=== PATIENT | female | born 1980 | race Caucasian/White ===

== ENCOUNTER 2017-12-20 12:15 | Emergency (ER) | payer SELFPAY ==
[2017-12-20 12:18] VITALS: BMI 29.2
--- NOTE | 2017-12-20 12:25 | PDOC ---
History of Present Illness <Edita Guevara - Last Filed: 12/20/17 13:34> - General History Source: Patient Exam Limitations: No Limitations - History of Present Illness Initial Comments: 12/20/17 12:26 A 37 yo F with no signif PMHx presenting with lower abdominal pain since this am. Pain came on suddenly, 10/ not relieved by pain meds. Associated with one episode of nausea and vomiting. Pt had one episode of diarrhea this am, brown, non bloody. No dysuria, no vaginal discharge, no hematuria. Pt noted onset of her menstrual period this am, usually 01/05, regular, no dysmenorrhea. She is P4 (4Alive) last child 10years ago. Pt has loss of appetite and generalized weakness. No chest pain, no shortness of breath. 12/20/17 13:06 Timing/Duration: 4-6 hours, getting worse Severity: moderate Associated Symptoms: reports: loss of appetite, nausea/vomiting. denies: chest pain, cough, diaphoresis, fever/chills, headaches <Agaba,Comfort I - Last Filed: 12/20/17 16:44> - General Chief Complaint: Pain Stated Complaint: ABDOMINAL PAIN Time Seen by Provider: 12/20/17 12:23 Past History <Edita Guevara - Last Filed: 12/20/17 13:34> - Past Medical History COPD: No - Suicide/Smoking/Psychosocial Hx Smoking History: Never smoked Hx Alcohol Use: No Drug/Substance Use Hx: No Substance Use Type: None <Agaba,Comfort I - Last Filed: 12/20/17 16:44> - Past Medical History Allergies/Adverse Reactions: Allergies Allergy/AdvReac Type Severity Reaction Status Date / Time Penicillins Allergy Verified 12/20/17 12:18 Review of Systems - Review of Systems Able to Perform ROS?: Yes (Sister interpreting) Is the patient limited Yoruba proficient: Yes Constitutional: Yes: Loss of Appetite, Weakness. No: Chills, Diaphoresis, Fever , Night Sweats HEENTM: Yes: Throat Pain. No: Nose Congestion Respiratory: No: Cough, Orthopnea, Shortness of Breath Cardiac (ROS): No: Chest Pain, Edema, Palpitations, Syncope, Chest Tightness ABD/GI: Yes: Abd. Pain w/ defecation, Diarrhea, Vomiting. No: Abdominal Distended, Constipated, Other : Yes: Pain. No: Burning, Dysuria, Discharge, Hematuria Musculoskeletal: Yes: Muscle Weakness. No: Back Pain, Joint Stiffness Neurological: Yes: Weakness. No: Headache, Numbness, Paresthesia Endocrine: No: Excessive Sweating, Flushing, Increased Hunger Hematologic/Lymphatic: No: Anemia <Agaba,Comfort I - Last Filed: 12/20/17 16:44> *Physical Exam - Vital Signs Last Vital Signs Temp Pulse Resp BP Pulse Ox 97.8 F 76 18 114/54 100 12/20/17 12:16 12/20/17 12:16 12/20/17 12:16 12/20/17 12:16 12/20/17 12:16 <IsmaelEdita - Last Filed: 12/20/17 13:34> - Vital Signs Last Vital Signs Temp Pulse Resp BP Pulse Ox 97.8 F 76 18 114/54 100 12/20/17 12:16 12/20/17 12:16 12/20/17 12:16 12/20/17 12:16 12/20/17 12:16 - Physical Exam General Appearance: Yes: Apparent Distress HEENT: positive: EOMI, ALVARO. negative: Scleral Icterus (L) Neck: positive: Supple. negative: Tender Respiratory/Chest: positive: Lungs Clear, Normal Breath Sounds Cardiovascular: positive: Regular Rate, S1, S2 Gastrointestinal/Abdominal: positive: Normal Bowel Sounds, Soft, Tenderness ( Tenderness McBurneys point, absent Rovsing, positive psoas and obturator signs, absent CVA tenderness). negative: Distended, Mass Musculoskeletal: negative: CVA Tenderness Extremity: positive: Normal Inspection. negative: Cyanosis, Calf Tenderness Integumentary: positive: Dry, Warm Neurologic: positive: Fully Oriented, Alert, Motor Strength 5/5. negative: Facial Droop, Numbness, Confused, Disoriented <Agaba,Comfort I - Last Filed: 12/20/17 16:44> Heart Score/ECG Review - ECG Intrepretation Rhythm: Regular Rhythm - Broadway Broadway: Normal - P and AK Delta Wave(s) Present: No WPW: No - ST and T Prolonged Q-T Interval: Yes - ECG Impressions Comment:: 12/20/17 14:35 Normal sinus rhythm, Ventricular rate 73bpm Prolonged QT/QTc-454/500 No previous EKGs <Agaseveriano,Comfort I - Last Filed: 12/20/17 16:44> ED Treatment Course - LABORATORY CBC & Chemistry Diagram: 12/20/17 12:47 12/20/17 12:47 - ADDITIONAL ORDERS Additional order review: Laboratory Results 12/20/17 12/20/17 12/20/17 12:47 12:47 12:30 PT with INR 11.90 Cancelled INR 1.05 Cancelled PTT (Actin FS) 28.6 Urine Color Urine Appearance Urine pH Ur Specific [place] Urine Protein Urine Glucose (UA) Urine Ketones Urine Blood Urine Nitrite Urine Bilirubin Urine Urobilinogen Ur Leukocyte Esterase Urine WBC (Auto) Urine RBC (Auto) Ur Epithelial Cells Urine Mucus Urine HCG, Qual Negative 12/20/17 12:30 PT with INR INR PTT (Actin FS) Urine Color Yellow Urine Appearance Slcloudy Urine pH 7.0 Ur Specific [place] 1.026 Urine Protein 2+ H Urine Glucose (UA) Negative Urine Ketones Trace H Urine Blood 1+ H Urine Nitrite Negative Urine Bilirubin Negative Urine Urobilinogen Negative Ur Leukocyte Esterase Negative Urine WBC (Auto) 1 Urine RBC (Auto) 77 Ur Epithelial Cells Rare Urine Mucus Few Urine HCG, Qual 12/20/17 12:47 RBC 4.42 MCV 72.7 L MCHC 32.9 RDW 16.9 H MPV 8.2 Neutrophils % 79.8 Lymphocytes % 12.5 Monocytes % 5.6 Eosinophils % 1.3 Basophils % 0.8 - Medications Given in the ED: ED Medications Discontinued Medications Generic Name Dose Route Start Last Admin Trade Name Arsenio PRN Reason Stop Dose Admin Morphine Sulfate 4 mg 12/20/17 12:45 12/20/17 12:56 Morphine Injection - IVPUSH 12/20/17 12:46 4 mg ONCE ONE Administration Ondansetron HCl 4 mg 12/20/17 12:50 12/20/17 13:01 Zofran Injection IVPUSH 12/20/17 12:51 4 mg ONCE ONE Administration Sodium Chloride 1,000 ml 12/20/17 12:44 12/20/17 12:56 Normal Saline - IV 12/20/17 12:45 1,000 ml ONCE ONE Administration <Edita Guevara - Last Filed: 12/20/17 13:34> - LABORATORY CBC & Chemistry Diagram: 12/20/17 12:47 12/20/17 12:47 <Radha Reyes I - Last Filed: 12/20/17 16:44> Medical Decision Making - Medical Decision Making UA, test- R/O kidney stones and ectopic test negative, UA negative except for blood (pt is on her menstrual period) 12/20/17 15:35 RLQ tenderness with positive McBurney's tenderness, psoas and obturator, negative Rovsings Likely acute appendicitis, R/O ovarian cyst rupture CBC, CMP, PT/PTT, EKG, CXR, CT scan with PO and iv contrast No leucocytosis, normal CMP pending- CT reading 12/20/17 16:30 CT abdomen pelvis- No evidence of appendicitis or acute pathology D/W patient, to follow up with inside sales advertising executive, likely secondary dysmenorrhea since no previous hx and abdominal pain coincided with onset of menses <Radha Reyes I - Last Filed: 12/20/17 16:44> *DC/Admit/Observation/Transfer <Edita Guevara - Last Filed: 12/20/17 13:34> - Discharge Dispostion Admit: No - Attestations Physician Attestion: 12/20/17 16:38 Radha Reyes MD <Radha Reyes I - Last Filed: 12/20/17 16:44> Diagnosis at time of Disposition: Dysmenorrhea, unspecified - Discharge Dispostion Disposition: HOME Condition at time of disposition: Improved - Referrals Referrals: Randi Chamberlain MD [Staff Physician] - 3 days - Patient Instructions Printed Discharge Instructions: DI for Dysmenorrhea Additional Instructions: You came in with a hx of lower abdominal pain, nausea/vomiting and diarrhea We did blood and urine tests that did not show any evidence of infection We did a CT of your abdomen that did not show any evidence of acute appendicitis or kidney stones We suspect this is painful menses Please follow up with a Fabrication Lead in 2-3 days Follow up with your primary doctor at [address] [place] [id number] within a week If you think your symptoms are worsening, please return to the emergency room Print Language: TAMAZIGHT
[2017-12-20 12:41] LABS: URINE APPEARANCE SLCLOUDY; URINE BILIRUBIN NEGATIVE (<2.0 mg/dL); URINE COLOR YELLOW; URINE GLUCOSE (UA) NEGATIVE (NEGATIVE); URINE KETONE TRACE (NEGATIVE); URINE LEUK ESTERASE NEGATIVE (NEGATIVE); URINE NITRITE NEGATIVE (NEGATIVE); URINE PROTEIN 2+ (NEGATIVE); URINE UROBILINOGEN NEGATIVE mg/dL (0.2-1.0)
[2017-12-20 12:43] LABS: EPI CELLS RARE /HPF (FEW); URINE MUCUS FEW
[2017-12-20] MEDS ORDERED: SODIUM CHLORIDE 0.9% 500 ML INFUS.BAG IV ONE (12:44)
[2017-12-20] MEDS ORDERED: morphine CARPU-JECT 4 MG/1 ML DISP.SYRIN IVPUSH ONE (12:45)
[2017-12-20] MEDS ORDERED: morphine SULFATE 4 MG/ML VIAL ONE (12:50)
[2017-12-20] MEDS ORDERED: ONDANSETRON 4 MG/2 ML VIAL IVPUSH ONE (12:50)
--- NOTE | 2017-12-20 12:50 | PDOC ---
Attending Attestation - HPI HPI: 12/20/17 13:34 The patient is a 37-year-old female, with no significant past medical history, who presents to the ED with lower abdominal pain that began after she woke up this morning. The patient states that the pain came on suddenly, 10/10 severity , associated with nausea and vomiting. Patient took pain medication with no alleviation of her symptoms. She reports having one episode of nonbloody diarrhea this morning, loss of appetite, and generalized weakness. Patient began her menstrual period today. The patient denies any chest pain or shortness of breath. Denies any dysuria, hematuria, frequency, urgency, or hesitancy. - Physicial Exam PE: 12/20/17 13:34 GENERAL: (+)In acute distress. Awake, alert, and fully oriented. HEAD: No signs of trauma EYES: PERRLA, EOMI, sclera anicteric, conjunctiva clear ENT: Auricles normal inspection, hearing grossly normal, nares patent, oropharynx clear without exudates. Moist mucosa NECK: Normal ROM, supple, no lymphadenopathy, JVD, or masses LUNGS: Breath sounds equal, clear to auscultation bilaterally. No wheezes, and no crackles HEART: Regular rate and rhythm, normal S1 and S2, no murmurs, rubs or gallops ABDOMEN: (+)McBurney's sign. Soft, normoactive bowel sounds. No masses EXTREMITIES: (+)positive obturator and psoas. No edema. No clubbing or cyanosis. No cords, erythema, or tenderness NEUROLOGICAL: Cranial nerves II through XII grossly intact. Normal speech, normal gait SKIN: Warm, Dry, normal turgor, no rashes or lesions noted <Edita Guevara - Last Filed: 12/20/17 14:13> - Resident Resident Name: [facility] - ED Attending Attestation I have performed the following: I have examined & evaluated the patient, The case was reviewed & discussed with the resident, I agree w/resident's findings & plan, Exceptions are as noted - Medical Decision Making 12/20/17 12:47 I, Dr. Emelyn Cifuentes, DO, attest that this document has been prepared under my direction and personally reviewed by me in its entirety. I further attest, that it accurately reflects all work, treatment, procedures and medical decision -making performed by me. 12/20/17 12:49 a/p: 37yo female with acute onset of n/v/d and RLQ pain -anorexia now -pain to mcburneys point -currently menstruating and no hx of ovarian cysts -will obtain labs, ua, ct abd/pelvis to eval for poss acute appendicitis -will give ivf hdyration, nausea and pain control 12/20/17 14:13 pt is currently menstruating 12/20/17 16:50 no elevated wbc no acute appy or acute intraabd path seen on ct stable for d/c to home resident discussed labs and imaging with the patient. pt feeling better. <Emelyn Cifuentes - Last Filed: 12/20/17 16:51> Heart Score/ECG Review - ECG Intrepretation Comment:: 12/20/17 14:12 sinus at 73, nl axis, nl interval no acute st/t wave findings <Emelyn Cifuentes - Last Filed: 12/20/17 16:51> Attestations - Attestations 12/20/17 13:36 Documentation prepared by Edita Guevara, acting as certified medical biller for Emelyn Cifuentes DO. <Edita Guevara - Last Filed: 12/20/17 14:13>
[2017-12-20 12:54] LABS: BASO % 0.8 % (0-2.0); EOS % 1.3 % (0-4.5); HEMATOCRIT 32.1 % (32.4-45.2); HEMOGLOBIN 10.6 GM/dL (10.7-15.3); LYMPH % 12.5 % (8-40); MCH 23.9 pg (25.7-33.7); MCHC 32.9 g/dl (32.0-36.0); MEAN CELL VOLUME 72.7 fl (80-96); MEAN PLT VOLUME 8.2 fl (7.5-11.1); MONO % 5.6 % (3.8-10.2); NEUT % 79.8 % (42.8-82.8); PLATELET COUNT 276 K/MM3 (134-434); RBC 4.42 M/mm3 (3.60-5.2); RDW 16.9 % (11.6-15.6); WHITE BLOOD COUNT 8.4 K/mm3 (4.0-10.0)
[2017-12-20] MEDS ORDERED: ONDANSETRON 4 MG/2 ML VIAL ONE (12:57)
[2017-12-20 13:08] LABS: INR 1.05 (0.82-1.09); PROTHROMBIN TIME (PATIENT) 11.9 SEC (9.7-13.0)
[2017-12-20 13:09] LABS: ACTIVATED PTT 28.6 SECONDS (26.9-34.4)
[2017-12-20 14:18] LABS: ALBUMIN 4.3 g/dl (3.4-5.0); ANION GAP 11 (8-16); BLOOD UREA NITROGEN 11 mg/dL (7-18); CALCIUM 8.9 mg/dL (8.5-10.1); CHLORIDE 108 mmol/L (98-107); CO2 23 mmol/L (21-32); GLUCOSE,RANDOM 108 mg/dL (74-106); LIPASE 150 U/L (73-393); POTASSIUM 4.1 mmol/L (3.5-5.1); SODIUM 142 mmol/L (136-145)
[2017-12-20 14:22] LABS: ALK PHOS 77 U/L (45-117); BILIRUBIN,TOTAL 0.2 mg/dL (0.2-1.0); CREATININE 0.8 mg/dL (0.55-1.02); SGOT/AST 21 U/L (15-37); SGPT/ALT 23 U/L (12-78); TOT PROT 8.3 g/dl (6.4-8.2)
--- NOTE | 2017-12-20 14:31 | EKG ---
Test Reason : Blood Pressure : / mmHG Vent. Rate : 073 BPM Atrial Rate : 073 BPM P-R Int : 124 ms QRS Dur : 086 ms QT Int : 454 ms P-R-T Axes : 029 017 025 degrees QTc Int : 500 ms NORMAL SINUS RHYTHM PROLONGED QT ABNORMAL ECG NO PREVIOUS ECGS AVAILABLE Confirmed by MD Baron, Hayden ([id number]) on 12/20/2017 2:30:51 PM Referred By: Confirmed By:Hayden Draper MD
[2017-12-20 16:51] VITALS: BP 108/79; PULSE 74; TEMP 98.6
== END 2017-12-20 16:51 | disposition home or self-care (01) ==
LOC: JER 12:15
PROC: 3E033GC Introduction of Other Therapeutic Substance into Peripheral Vein, Percutaneous Approach (ICD-10-PCS; principal; 2017-12-20)
PROC: 3E033NZ Introduction of Analgesics, Hypnotics, Sedatives into Peripheral Vein, Percutaneous Approach (ICD-10-PCS; 2017-12-20)
DX: N94.6 Dysmenorrhea, unspecified (principal)
CPT/HCPCS: 36415; 71045-TC-FY; 74177-TC; 80053; 81003; 81015; 83690; 84703; 85025; 85610; 85730; 86850; 86900; 86901; 93005; 93010; 99284-25